=== PATIENT | male | born 1955 | race Caucasian/White ===

== ENCOUNTER 2024-08-09 14:13 | Emergency (ER) | payer OTHER, BC ==
[~2024-08-09] VITALS: Ht 180.3 cm; Wt 72.8 kg
[2024-08-09 14:19] VITALS: TEMP 97.6
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
[2024-08-09] MEDS: HYDROcodone/acetaminophen 10/325mg tab PO ONE (16:46)
[2024-08-09] MEDS: ondansetron 4mg rapidly disintigrating tab PO ONE (16:47)
[2024-08-09 17:00] VITALS: BP 148/98; PULSE 87; RESP 18; O2SAT 98
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
[2024-08-09] MEDS ORDERED: ONDA-243 PO (18:21)
== END 2024-08-09 18:28 | disposition home or self-care (01) ==
LOC: ER 14:14
DX: M54.2 Cervicalgia (principal); M54.50 Low back pain, unspecified; V98.8XXA Other specified transport accidents, initial encounter; Y93.89 Activity, other specified; Y92.89 Other specified places as the place of occurrence of the external cause; Y99.8 Other external cause status
CPT/HCPCS: 70450; 72100; 72125; 72131; 99284